=== PATIENT | male | born 1985 | race Caucasian/White ===

== ENCOUNTER 2023-10-11 16:41 | Emergency (ER) | payer BC ==
[2023-10-11] MEDS ORDERED: Diphtheria,Pertussis(Acell),Tetanus Vaccine 0.5 ML Syringe IM ONE (17:08)
== END 2023-10-11 17:43 | disposition home or self-care (01) ==
LOC: FB.ED 16:41
DX: S61.012A Laceration without foreign body of left thumb without damage to nail, initial encounter (principal); Z23 Encounter for immunization; W26.8XXA Contact with other sharp object(s), not elsewhere classified, initial encounter
CPT/HCPCS: 12001; 90471; 90715; 99282; 99282-25